=== PATIENT | male | born 1945 | race Caucasian/White ===

== ENCOUNTER 2018-12-09 13:36 | Emergency (ER) | payer MEDICARE, BC ==
[2018-12-09] MEDS ORDERED: Amlodipine 5 MG TAB ONE (14:10)
--- NOTE | 2018-12-09 14:39 | CT ---
CT BRAIN NONCONTRAST: HISTORY: A 73-year-old male status post acute head trauma from fall. FINDINGS: There is no midline shift or any other mass effect. There is no evidence of acute intracranial hemor rhage, large cortical infarct, obstructive hydrocephalus, or extraaxial fluid collection. The calvar ium is intact. There is a high-density superficial soft tissue mass in the left frontal scalp. IMPRESSION: 1. No acute intracranial findings. 2. Acute, traumatic left frontal scalp hematoma. trista Nicholas POS: LINDA
[2018-12-09] MEDS ORDERED: Ibuprofen 200 MG TAB ONE (15:12)
[2018-12-09] MEDS ORDERED: Bacitracin Zinc 1 Packet ONE (15:32)
== END 2018-12-09 16:08 | disposition home or self-care (01) ==
LOC: ERS 13:36
DX: S00.83XA Contusion of other part of head, initial encounter (principal); E11.9 Type 2 diabetes mellitus without complications; I10 Essential (primary) hypertension; E78.5 Hyperlipidemia, unspecified; F32.9 Major depressive disorder, single episode, unspecified; Z79.84 Long term (current) use of oral hypoglycemic drugs; Z79.899 Other long term (current) drug therapy
CPT/HCPCS: 70450

== ENCOUNTER 2020-04-08 14:04 | Outpatient (CLI) | payer MEDICARE, BC | END 2020-04-08 14:05 | disposition home or self-care (01) | LOC: CTENTCT 14:04 | PROVIDERS: ATTEND Otolaryngology Plastic Surgery within the Head & Neck | DX: R51 Headache (principal) | CPT/HCPCS: 70486 ==

== ENCOUNTER 2020-04-17 12:19 | Outpatient (CLI) | payer MEDICARE, BC ==
--- NOTE | 2020-04-17 13:27 | MRI ---
MRI BRAIN WITH AND WITHOUT IV CONTRAST: HISTORY: Nonintractable episodic headache COMPARISON: None CORRELATION:12/09/2018 FINDINGS: No restricted diffusion is seen. No evidence of infarct, hemorrhage, mass, midline shift or abnormal extra-axial fluid collections is noted. No abnormal postcontrast enhancement is seen. The ventricular size is appropriate and the basilar cisterns are patent. There are multiple foci of T2 prolongation in the periventricular white matter, consistent with chron ic small vessel ischemic disease. The visualized paranasal sinuses and mastoid air cells are well aerated. IMPRESSION: No evidence of acute intracranial process or mass.
== END 2020-04-17 12:20 | disposition home or self-care (01) ==
LOC: BICMRI 12:19
PROVIDERS: ATTEND Internal Medicine
DX: R51 Headache (principal)
CPT/HCPCS: 70553; 82565